=== PATIENT | male | born 1965 | race Caucasian/White ===

== ENCOUNTER 2020-10-23 01:46 | Emergency (ER) | payer OTHER ==
[~2020-10-23 01:46] MED LIST: FLOMAX0.4 MG PO; GINGER; MVI PO; PRISTIQ50 MG PO
[2020-10-23 02:02] LABS: BASOPHIL 1.4 % (0-2); EOSINOPHIL 5.9 % (0-5); HCT 43.2 % (42.0-52.0); HGB 14.6 g/dl (13.2-18.0); LYMPHOCYTE 45.3 % (15-48); MCH 30.2 pg (25.0-31.0); MCHC 33.8 g/dL (32.0-36.0); MCV 89.3 fL (78.0-100.0); MONOCYTE 15.7 % (0-12); MPV 9.9 fL (6.0-9.5); NEUTROPHIL 31.6 % (41-80); NRBC 0; PLT 281 K/uL (150-400); RBC 4.84 M/uL (4.70-6.00); RDW 12.5 % (11.5-14.0); WBC 7.1 K/uL (4.0-10.5)
[2020-10-23 02:25] LABS: BILIRUBIN - TOTAL 0.7 mg/dL (0.2-1.0); BUN/CREAT RATIO (CALC) 20.9 RATIO; C-REACTIVE PROTEIN 1.1 mg/dL (<=0.90); CREATININE 1.1 mg/dL (0.67-1.17); GLOBULIN (CALCULATION) 3.6 g/dL; POTASSIUM 3.7 mmol/L (3.5-5.1); TOTAL PROTEIN 7.6 g/dL (6.4-8.2)
== END 2020-10-23 05:34 | disposition home or self-care (01) ==
LOC: FER 01:46
PROVIDERS: Internal Medicine
DX: N13.2 Hydronephrosis with renal and ureteral calculous obstruction (principal); N28.9 Disorder of kidney and ureter, unspecified
CPT/HCPCS: 36415; 80053; 83690; 85025; 86140; J1885; J2270